=== PATIENT | male | born 1960 | race Caucasian/White ===

== ENCOUNTER → 2016-11-09 | Outpatient (CLI) | payer OTHER ==
[2016-11-09 19:01] LABS: ALT 51 U/L (21-72); AST 26 U/L (17-59); Alkaline Phosphatase 79 U/L (38-126); Anion Gap 11 mmol/L; Blood Urea Nitrogen 18 mg/dL (9-20); Calcium 9.4 mg/dL (8.4-10.2); Carbon Dioxide 26 mmol/L (22-30); Chloride 104 mmol/L (98-107); Cholesterol 197 mg/dL (<200); Glucose 87 mg/dL (74-99); HDL Cholesterol 44 mg/dL (40-60); Non-African American GFR(MDRD) >60 (>60 ml/min/1.73 sqM); Sodium 141 mmol/L (137-145); Total Bilirubin 0.8 mg/dL (0.2-1.3); Total Protein 7.2 g/dL (6.3-8.2); Triglycerides 134 mg/dL (<150)
[2016-11-09 19:02] LABS: Potassium 4.3 mmol/L (3.5-5.1)
[2016-11-09 19:43] LABS: Vitamin B12 235 pg/mL (239-931)
== END ==
LOC: MMGSC 16:43
PROVIDERS: ATTEND Family Medicine
DX: I10 Essential (primary) hypertension (principal); Z12.5 Encounter for screening for malignant neoplasm of prostate
CPT/HCPCS: 80061; 80053; 82607; 82306; 36415; G0103

== ENCOUNTER → 2018-06-20 | Outpatient (CLI) | payer OTHER ==
--- NOTE | 2018-06-20 20:20 | CONS ---
CONSULTATION REASON FOR CONSULTATION: Sleep apnea. This is a 57-year-old male patient coming in for sleep apnea evaluation. The patient recently got and he has been asked by his to undergo a sleep apnea evaluation, knowing that he is snoring loudly, and at times he has been noted to have apneas. He is very tired and sleepy during the day. 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 At times he has to pull to the side of the road to take a brief nap, especially when he feels very drowsy and sleepy. He has never been involved in a motor vehicle accident because of sleepiness. However, he is feeling more tired and sleepy during the day. He goes to bed around 10 p.m., wakes up at 5 a.m. in the morning. On weekends he sleeps between 11 p.m. and 6 a.m. He wakes up refreshed, yet the sleepiness happens later on during the day. At times he falls asleep while watching TV, unless it is a very exciting show such as a basketball or football game. He has symptoms of nocturia, and currently he has been treated for prostatism with terazosin. No grinding of the teeth. No sleepwalking or sleeptalking. No restlessness in the lower extremities. No recent weight gain or weight loss. PAST MEDICAL HISTORY: BPH. PAST SURGICAL HISTORY: Includes recent cyst removed from the left wrist. DRUG ALLERGIES: NOT KNOWN. OUTPATIENT MEDICATIONS: Includes terazosin. SOCIAL HISTORY: Patient is a nonsmoker. No history of alcoholism. No history of IV drugs. FAMILY HISTORY: Positive for SHILPA in his brother. REVIEW OF SYSTEMS: Twelve-point review of systems was done. Positive findings were all mentioned above. No insomnia. No waking up choking or gasping for air. No restlessness in the lower extremities. No grinding of the teeth. No sleepwalking or sleeptalking. No anxiety. No panic attacks. No palpitations. No heartburn. No issues with memory or concentration. No history of anxiety or claustrophobia. No issues with sleep paralysis, hallucinations or cataplexy. No issues with waking up in the middle of night for choking or gasping or shortness of breath or chest pain or heartburn. PHYSICAL EXAMINATION: BP is 123/78, pulse 71, respirations 16, temperature 97.5, saturation 96% on room air. Weight is 262. Height is 5 feet 11 inches, Tillar score 17, BMI 36, and neck size is 17-3/4 inches. GENERAL APPEARANCE: Calm, comfortable. Head is atraumatic, normocephalic. Neck is short, supple. Crowding of posterior pharynx. Mallampati class III. LUNGS: Clear to auscultation. Heart sounds are regular rate and rhythm. Normal S1, S2. No S3, S4. No murmurs. ABDOMEN: Soft, nontender. No organomegaly. EXTREMITIES: No edema. No cyanosis or clubbing. NEUROLOGIC: Alert and oriented x3. No focal neurological deficit. PSYCHIATRIC: Negative for anxiety or depression. SKIN: Negative for any wounds or ulceration. IMPRESSION: 1. Hypersomnia, currently under investigation. Consider underlying obstructive sleep apnea based on the reported symptoms and anatomic features. 2. Excessive sleepiness. Tillar score of 17. 3. Loud snoring. 4. Nocturia. 5. Benign prostatic hypertrophy, currently on terazosin. PLAN: 1. Proceed with a screening polysomnogram. 2. Avoid driving, especially when feeling drowsy or sleepy. 3. Implement good sleep hygiene measures. 4. Will continue to follow and make further recommendations based on results of his sleep study. MMODL / IJN: [id number] /
== END | disposition home or self-care (01) ==
LOC: SLEEP 16:14
PROVIDERS: ATTEND Internal Medicine Critical Care Medicine
DX: G47.10 Hypersomnia, unspecified (principal); R06.83 Snoring; N40.1 Benign prostatic hyperplasia with lower urinary tract symptoms; R35.1 Nocturia; Z79.899 Other long term (current) drug therapy
CPT/HCPCS: 99211

== ENCOUNTER → 2018-10-31 | Outpatient (CLI) | payer OTHER ==
--- NOTE | 2018-10-31 19:13 | PN ---
PROGRESS NOTE COMPLIANCY CHECK FROM SLEEP CENTER: This is a 57-year-old male patient diagnosed having severe symptomatic obstructive sleep apnea with an AHI of 40.5, worse in the supine body position. The patient's sleep was extensively fragmented. Based on that, the patient underwent a CPAP titration. He was titrated to a CPAP pressure of 9 cm of water. On today's evaluation he is extremely compliant; however, the clinical benefit is not great and the patient is still having increased tiredness and sleepiness. In fact, he tells me that he is feeling better when he is not using the CPAP machine. He sleeps better while off the machine. I checked the compliance data. The patient is averaging around 5.5 hours of CPAP use per night, and his CPAP use for more than 4 hours is . His leak is 8 L/minute and the patient's AHI is down to 2. Based on all this, I am not sure what is causing this patient to be quite somnolent and sleepy, knowing that the compliance data shows excellent use and the treatment is obviously successful, knowing that the patient's AHI has dropped from 40.5 down to 2.1. His weight has been stable. No other medical problems or comorbidities for now. He is using the AirFit F20 medium-sized full-face mask. REVIEW OF SYSTEMS: A 14-point review of systems was done, and the patient is still having some residual sleepiness despite compliance with the CPAP unit. No recent weight gain or weight loss. No headaches. No head trauma. No closed-head injury. He has symptoms of BPH. No restlessness in the lower extremities. No nausea or vomiting. No chest pain. No heartburn. No pleurisy. No hemoptysis. PHYSICAL EXAMINATION: VITAL SIGNS: BP is 126/78, pulse 79, respirations 18, temperature 98.0, Stonewall Score 19. Saturation is 95% on room air. Weight is 267. GENERAL APPEARANCE: Calm, comfortable. HEAD: Atraumatic, normocephalic. NECK: Supple. There is no JVD. No goiter or neck masses. LUNGS: Diminished; otherwise clear. HEART: Heart sounds are regular rate and rhythm. Normal S1, S2. No S3, S4. No murmurs. ABDOMEN: Soft, nontender. No organomegaly. EXTREMITIES: No edema. No cyanosis or clubbing. NEUROLOGIC: The patient is awake and alert. There are no focal neurological deficits. PSYCHIATRICALLY the patient has no anxiety or depression. IMPRESSION: 1. Severe symptomatic obstructive sleep apnea with an apnea/hypopnea index of 40, positional, worse in the supine body position, worse during REM. The patient underwent successful CPAP titration. The patient is compliant, yet clinical response has been suboptimal. 2. Obesity with a body mass index of 37. 3. Chronic hypersomnia. Stonewall score of 19. 4. Benign prostatic hypertrophy. PLAN: 1. Continue CPAP therapy at the same level of pressure. No need for any further adjustments, knowing that the pressure has been adequate in eliminating the patient's obstructive sleep apnea. 2. Encourage weight loss. 3. Offer this patient an AirFit N30i medium-sized nose mask instead of the full-face mask. This may make his sleep quality and tolerability improve. 4. See me back in 6 months for re-evaluation. The patient is committed to CPAP therapy at this point, but meanwhile he will also see his primary care physician to make sure there are no other comorbidities contributing to his chronic tiredness and fatigue and sleepiness. Meanwhile, the patient will continue using the CPAP, and he will be considered for stimulant therapy within the next 3-6 months if he continues to be symptomatic. MMODL / IJN: [id number] /
== END | disposition home or self-care (01) ==
LOC: SLEEP 15:35
PROVIDERS: ATTEND Internal Medicine Critical Care Medicine
DX: G47.33 Obstructive sleep apnea (adult) (pediatric) (principal); G47.52 REM sleep behavior disorder; E66.9 Obesity, unspecified; N40.0 Benign prostatic hyperplasia without lower urinary tract symptoms; Z68.37 Body mass index [BMI] 37.0-37.9, adult; Z99.89 Dependence on other enabling machines and devices

== ENCOUNTER → 2019-03-13 | Outpatient (CLI) | payer OTHER ==
--- NOTE | 2019-03-13 19:56 | PN ---
PROGRESS NOTE 58-year-old male patient diagnosed having obstructive sleep apnea AHI of 40.5, coming in for a followup. Despite successful treatment, continues to be somewhat sleepy and tired and fatigued. [place] score is 14. He is benefitting from the treatment yet he still states that the treatment has not been absolutely effective and he is still struggling with some degree of hypersomnia. He has started some blood workup with primary care physician including metabolic workup. Otherwise no other complaints. I checked the compliance data. The numbers look great. AHI is down to 2 while on treatment. He is on a CPAP pressure of 9 cm of water. He is averaging around 5.3 hours of CPAP use. His leak is at 17 L per minute and his CPAP use for more than 4 hours is 23 out of 30. REVIEW OF SYSTEMS: Fourteen-point review of system was done. Essentially negative other than as mentioned above in the history of present illness. PHYSICAL EXAMINATION: BP is 132/77, pulse 64, respirations 16, temperature 97.9. Saturation 95% on room air. Height is 5 feet 11 inches, weight 268. [place] score is 14. BMI 37.2. General appearance: Calm, comfortable. HEENT: Head is atraumatic, normocephalic. NECK: Supple. No JVD. No goiter or neck masses. Mallampati class IV. LUNGS: Clear to auscultation. HEART: Sounds are regular rate and rhythm. Normal S1, S2. No S3. No murmurs. ABDOMEN: Soft, nontender. No organomegaly. EXTREMITIES: No edema. No cyanosis or clubbing. NEUROLOGIC: He is awake and alert. There are no focal neurological deficits. IMPRESSION: 1. Symptomatic severe obstructive sleep apnea AHI of 40, currently on CPAP pressure of 9 with good clinical response and compliance. 2. Residual hypersomnia and sleepiness, [place] score 13, currently under further investigations through the primary care physician. 3. Obesity. 4. Benign prostatic hypertrophy. PLAN: Complete metabolic profile, rule out diabetes, rule out hypothyroidism, rule out hypotestosteronism. If negative, consider with Provigil. In terms of his sleep apnea, he is well treated and his apnea-hypopnea index is less than 5 and he has been averaging more than 5 hours of CPAP use per night and as such he has undergone successful treatment and need for any further adjustments on the CPAP unit for now. I will see him back in a year's time. SHELLY / SALOMEN: [id number] /
== END ==
LOC: SLEEP 16:36
PROVIDERS: ATTEND Internal Medicine Critical Care Medicine
DX: G47.33 Obstructive sleep apnea (adult) (pediatric) (principal); E66.9 Obesity, unspecified; N40.0 Benign prostatic hyperplasia without lower urinary tract symptoms; Z99.89 Dependence on other enabling machines and devices

== ENCOUNTER → 2020-05-20 | Outpatient (CLI) | payer OTHER ==
--- NOTE | 2020-05-20 16:15 | PN ---
PROGRESS NOTE This is a 59-year-old male patient coming in for an annual check regarding obstructive sleep apnea. The patient has an AHI of 40.5, consistent with severe SIHLPA. The patient is on CPAP therapy and he continues to be successfully treated with CPAP. For now the pressure is 9 cm of water. Over the past one year, the patient has gained a total of 6 pounds. Currently he is up to 274 pounds. Nevertheless, his treatment has been successful and he has been averaging around 5.4 hours of CPAP use per night, and his CPAP use for more than 4 hours is 80%. Leak is on the order of 14 L/minute and the patient's AHI is down to 3.6 while on treatment. The patient has no specific complaints for now. No chest pain. He is waking up still once or twice in the middle of the night to urinate. He is currently taking terazosin. His Greene score is at 13. REVIEW OF SYSTEMS: Fourteen-point review of systems was done, and the positive findings are all mentioned in the history of present illness. PHYSICAL EXAMINATION: BP is 149/85, pulse 62, respirations 16, temperature 97.7, saturation 99% on room air. Height is 5 feet 11 inches, weight is 274. Greene score is 13. BMI 37.6. GENERAL APPEARANCE: Calm, comfortable. HEAD: Atraumatic, normocephalic. NECK: Supple. No JVD. No goiter or neck masses. Mallampati class IV. LUNGS: Clear to auscultation. HEART: Heart sounds are regular rate and rhythm. Normal S1, S2. No S3, S4. No murmurs. ABDOMEN: Soft, nontender. No organomegaly. EXTREMITIES: No edema. No cyanosis or clubbing. IMPRESSION: 1. Severe obstructive sleep apnea, AHI of 40, currently on CPAP pressure of 9 cm of water. Treatment is successful. 2. Chronic hypersomnia, stable for now. 3. Obesity with interval weight gain. Current body weight is up to 274 pounds with a body mass index of 37.6. 4. Benign prostatic hypertrophy. 5. Nocturia. PLAN: 1. Continue CPAP therapy at the same level of pressure. No adjustments are needed. 2. Refill the AirFit F20 full-face mask, medium size, in addition to a Climateline and filters. 3. See me back in a year's time in followup. His treatment is successful for now. MMVIKASL / IJN: [id number] /
== END | disposition home or self-care (01) ==
LOC: SLEEP 15:22
PROVIDERS: ATTEND Internal Medicine Critical Care Medicine
DX: G47.33 Obstructive sleep apnea (adult) (pediatric) (principal); E66.9 Obesity, unspecified; Z68.37 Body mass index [BMI] 37.0-37.9, adult; R35.1 Nocturia; N40.1 Benign prostatic hyperplasia with lower urinary tract symptoms; Z99.89 Dependence on other enabling machines and devices

== ENCOUNTER → 2024-06-26 | Outpatient (CLI) | payer OTHER ==
[2024-06-26 16:19] VITALS: BP 131/75; PULSE 64; RESP 16; TEMP 97.8
--- NOTE | 2024-06-26 17:02 | P.PN ---
Progress Note - Text Progress Note Date: 06/26/24 Pleasant 63-year-old old male patient, coming to see me in follow-up regarding his obstructive sleep apnea. The patient's last office visit was back in 05/26/2021. The patient is known to have obstructive sleep apnea, diagnosed back in 2019 and the patient has been diagnosed having sleep study with AHI of 40.5 and has been maintained on CPAP pressure of 9 cm of water. He still using the same CPAP unit which is a ResMed 10 and he is also using a AirFit F20 medium size fullface mask. His treatment has been successful over the past 2 years and the patient has had no new onset medical problems and comorbidities. His machine remains functional. On today's evaluation, a compliance check was done on the patient's compliancy over the past 30 days showed that the patient has utilized his machine 28/30 days and is achieved more than 4 hours 26/30 days. Has been averaging around 6.3 hours of CPAP use per night with a leak of 10 L/min and his AHI is down to 3.6 while on treatment. The patient has no major hypersomnia or sleepiness during the day. He is going to bed around 11 PM wakin g up at 6 AM in the morning. No snoring while on CPAP therapy. He is averaging at least 6-1/2 hours of sleep. No choking. No gasping. No grinding dry mouth and the patient is humidity heartburn. No chest pain or shortness of breath overnight. No daytime hypersomnia or sleepiness. The patient specific complaints. System review of system. A 14 point review of system was done and it was ess entially negative. No angina. Mass. No stroke. Medications include p.o. daily lisinopril 5 mg p.o. daily BP is 131/75 with a pulse of 64 respiration of 16 and a temperature of 97.8. Weight is 279 which is comparable to his last body weight back in 2021. His body mass index is 38.9. The patient appeared well nourished and normally developed. Vital signs as documented. Patient has a Mallampati class IV with crowding of the posterior pharynx. Head exam is unremarkable. No scleral icterus or corneal arcus noted. Neck is without jugular venous distension, thyromegaly, or carotid bruits. C arotid upstrokes are brisk bilaterally. Lungs are clear to auscultation and percussion. Cardiac exam reveals the PMI to be normally sized and situated. Rhythm is regular. First and second heart sounds normal. No murmurs, rubs or gallops. Abdominal exam reveals normal bowel sounds, no masses, no organomegaly and no aortic enlargement. Extremities are nonedematous and both femoral and pedal pulses are normal. Examination of the skin revealed no evidence of significant rashes, suspicious appearing nevi or other concerning lesions. Neurologically, the patient is awake and alert and the patient does not have any focal neurological deficit. Cranial nerves are essentially intact. Assessment Severe SHILPA with an AHI of 40.5. The patient continues to be successfully treated with CPAP pressure of 9 cm of water. Remains compliant. Obesity with a body mass index of 38.9 without any significant weight gain hypertension Hypertension Hyperlipidemia BPH Plan Successful treatment with CPAP therapy. Machine is functional. No major hypersomnia or sleepiness. The patient remains extremely compliant. No change at the pressure setting Refilled his CPAP supplies including the AirFit F20 medium size fullface mask Need to replace the machine. Continue CPAP therapy Encourage weight Good sleep hygiene measures See me back in follow-up in a years time.
== END ==
LOC: 3 N SLEEP 15:33
PROVIDERS: ATTEND Internal Medicine Critical Care Medicine
DX: G47.33 Obstructive sleep apnea (adult) (pediatric) (principal); E66.9 Obesity, unspecified; E78.5 Hyperlipidemia, unspecified; I10 Essential (primary) hypertension; N40.0 Benign prostatic hyperplasia without lower urinary tract symptoms; Z68.38 Body mass index [BMI] 38.0-38.9, adult; Z99.89 Dependence on other enabling machines and devices; F17.210 Nicotine dependence, cigarettes, uncomplicated
CPT/HCPCS: 99211